=== PATIENT | female | born 1955 | race Hispanic/Latino ===

== ENCOUNTER 2017-05-12 17:31 | Observation (INO) | payer OTHER ==
[2017-05-12] MEDS ORDERED: Oxycodone/Acetaminophen 5/325 mg Tab PO STA (17:50)
--- NOTE | 2017-05-12 18:02 | ED PDOC ---
Lower Extremity Pain/Injury Time Seen by Provider: 05/12/17 17:43 Chief Complaint (Nursing): Lower Extremity Problem/Injury Chief Complaint (Provider): Fall History Per: Patient History/Exam Limitations: no limitations Onset/Duration Of Symptoms: Mins (prior to arrival) Current Symptoms Are (Timing): Still Present Additional Complaint(s): Jenn Lozano is a 61 year old female who presents to the ED for evaluation s/ p fall minutes prior to arrival. States she tripped on a pothole which caused her to fall injuring right ankle, left wrist, and left knee. Patient did not sustain head injury or loss of consciousness. Patient can bear weight on both legs but with pain. Patient denies dizziness or syncope prior to fall. PMD: Hollis Eldridge MD Past Medical History Reviewed: Historical Data, Nursing Documentation, Vital Signs Vital Signs: Last Vital Signs Temp 97.1 F L 05/12/17 17:36 Pulse 82 05/12/17 17:36 Resp 18 05/12/17 17:36 BP 142/78 05/12/17 17:36 Pulse Ox 99 05/12/17 17:36 - Medical History PMH: No Chronic Diseases - Surgical History Surgical History: No Surg Hx - Family History Family History: States: No Known Family Hx - Living Arrangements Living Arrangements: With Family - Social History Current smoker - smoking cessation education provided: No Alcohol: Occasional Drugs: Denies - Allergies Allergies/Adverse Reactions: Allergies Allergy/AdvReac Type Severity Reaction Status Date / Time No Known Allergies Allergy Verified 05/12/17 17:36 Wells Criteria for PE - Wells Criteria for Pulmonary Embolism Clinical Signs and Symptoms of DVT: No P.E is #1 Diagnosis, or Equally Likely: No Heart Rate >100: No Immobilization at least 3 days;Surgery previous 4 weeks: No Previous, objectively diagnosed PE or DVT: No Hemoptysis: No Malignancy w/treatment within 6 months, or palliative: No Total Score: 0 Review of Systems ROS Statement: Except As Marked, All Systems Reviewed And Found Negative Musculoskeletal: Positive for: Other (left wrist injury, left knee injury, right foot injury) Neurological: Positive for: Other (no head injury or LOC) Physical Exam - Reviewed Nursing Documentation Reviewed: Yes Vital Signs Reviewed: Yes - Physical Exam Appears: Positive for: Well, Non-toxic, No Acute Distress Head Exam: Positive for: ATRAUMATIC, NORMAL INSPECTION, NORMOCEPHALIC Skin: Positive for: Normal Color. Negative for: Rash Eye Exam: Positive for: Normal appearance Neck: Positive for: Normal, Painless ROM Extremity: Positive for: Normal ROM (Full ROM left knee w/pain, abrasion noted to left knee), Tenderness (Moderate tenderness to left lateral malleolus), Deformity (Obvious bony deformity to left wrist with palpable radial pulses and normal sensation), Swelling (Moderate swelling to left lateral malleolus) Neurologic/Psych: Positive for: Alert, Oriented - Laboratory Results Result Diagrams: 05/12/17 20:17 05/12/17 20:17 - ECG Interpretation Of ECG: NSR 91 bpm, no acute finding, reviewed by PA and ED attending O2 Sat by Pulse Oximetry: 99 (RA) Pulse Ox Interpretation: Normal - Other Rad CXR X-Ray: Interpreted by Me, Viewed By Me X-Ray Interpretation: no acute finding Left knee x-ray X-Ray: Interpreted by Me, Viewed By Me X-Ray Interpretation: no fx, no dis Right ankle x-ray X-Ray: Interpreted by Me, Viewed By Me X-Ray Interpretation: no fx, no dis Left wrist x-ray X-Ray: Interpreted by Me, Viewed By Me, Read By Radiologist X-Ray Interpretation: see below Medical Decision Making Medical Decision Making: Time: 17:50 Initial Impression: 61 year old female here for evaluation s/p fall Plan: --X-Ray Knee Left 3 Views --X-Ray Ankle Right 3 Views --X-Ray Wrist Left 3 Views --Percocet 5/325 mg PO X-ray left wrist: IMPRESSION: Acute transverse comminuted impacted nondisplaced fracture in the distal radius with moderate pole are. Acute nondisplaced fracture in the styloid process of ulna. Time: 19:00 --Consulted with Dr. Sandra who requested the patient be admitted for displaced radius fracture. Patient is aware of and agrees with admission. --Dr. Singh, family practice resident at bedside for admission. --PMD is Dr. Eldridge, call placed to office and, Dr. Olsen made aware that patient is being admitted. Scribe Attestation: Documented by Jose R Farmer, acting as a scribe for Erica Celeste PA-C Provider Scribe Attestation: All medical record entries made by the Scribe were at my direction and personally dictated by me. I have reviewed the chart and agree that the record accurately reflects my personal performance of the history, physical exam, medical decision making, and the department course for this patient. I have also personally directed, reviewed, and agree with the discharge instructions and disposition. Procedures - Splinting Location: Left wrist Splint: sugar-tong Pre-Proc Neuro Vasc Exam: normal Post-Proc Neuro Vasc Exam: normal Progress: Aircast also applied to right ankle, N/V intact s/p placement. Disposition - Clinical Impression Clinical Impression: Displaced fracture of left radius - Patient ED Disposition Is Patient to be Admitted: Yes - Disposition Disposition Time: 20:38 Condition: FAIR - Pt Status Changed To: Hospital Disposition Of: Inpatient - Admit Certification Admit to Inpatient:: After my assessment, the patient will require hospitalization for at least two midnights. This is because of the severity of symptoms shown, intensity of services needed, and/or the medical risk in this patient being treated as an outpatient. - POA Present On Arrival: None Results - Lab Results Lab Results: 05/12/17 05/12/17 05/12/17 20:17 20:17 20:17 WBC 15.4 H RBC 4.89 Hgb 14.2 Hct 43.5 MCV 88.8 MCH 29.1 MCHC 32.7 L RDW 13.6 Plt Count 525 H MPV 8.4 Neut % (Auto) 87.1 H Lymph % (Auto) 7.0 L [place] % (Auto) 4.8 Eos % (Auto) 0.4 Baso % (Auto) 0.7 Neut # 13.5 H Lymph # 1.1 [place] # 0.7 Eos # 0.1 Baso # 0.1 Neutrophils % (Manual) Pending Lymphocytes % (Manual) Pending Monocytes % (Manual) Pending Platelet Estimate Pending PT 10.9 INR 1.0 APTT 28.3 Sodium 140 Potassium 4.8 Chloride 104 Carbon Dioxide 26 Anion Gap 15 BUN 17 Creatinine 0.7 Est GFR ( Amer) > 60 Est GFR (Non-Af Amer) > 60 Random Glucose 103 Calcium 8.9 Total Bilirubin 0.5 AST 41 H ALT 40 Alkaline Phosphatase 92 Total Protein 7.6 Albumin 4.6 Globulin 3.0 Albumin/Globulin Ratio 1.5
[2017-05-12] MEDS ORDERED: Oxycodone/Acetaminophen 5/325 mg Tab ONE (18:04)
--- NOTE | 2017-05-12 18:40 | RAD ---
PROCEDURE: Left Knee Radiographs. HISTORY: Pain. COMPARISON: None. FINDINGS: BONES: There is no acute displaced fracture or bone destruction. Bone alignment is normal. There is mild periarticular bone demineralization JOINTS: Normal. No osteoarthritis. JOINT EFFUSION: None. OTHER FINDINGS: None. IMPRESSION: No acute fracture or dislocation.
--- NOTE | 2017-05-12 18:40 | RAD ---
PROCEDURE: Right Ankle Radiographs. HISTORY: Trauma COMPARISON: None FINDINGS: BONES: No acute displaced fracture or bone destruction. Bone alignment and mineralization are normal. JOINTS: Normal. No osteoarthritis. Ankle mortise maintained. Talar dome intact SOFT TISSUES: There is moderate lateral soft tissue swelling. OTHER FINDINGS: None. IMPRESSION: No acute displaced fracture or dislocation. Moderate lateral soft tissue swelling.
--- NOTE | 2017-05-12 18:43 | RAD ---
PROCEDURE: Left Wrist Radiographs. HISTORY: trauma COMPARISON: None. FINDINGS: BONES: There is an acute transverse comminuted impacted nondisplaced fracture in the distal radius with moderate volar angulation. There is an acute nondisplaced fracture in the styloid process of ulna. There is diffuse bone demineralization. Bone alignment is normal. JOINTS: The proximal and distal carpal rows are maintained. No dislocation. SOFT TISSUES: There is moderate soft tissue swelling in the distal forearm. OTHER FINDINGS: None. IMPRESSION: Acute transverse comminuted impacted nondisplaced fracture in the distal radius with moderate pole are. Acute nondisplaced fracture in the styloid process of ulna.
--- NOTE | 2017-05-12 19:56 | CP.PCM.HP ---
<Melissa Hernandez - Last Filed: 05/12/17 22:51> History of Present Illness - History of Present Illness History of Present Illness: 61 year old female with no significant PMHx who presents to the ED for evaluation after she fell minutes prior to arrival. Patient states she tripped on a pothole which caused her to twist her right leg and fall injuring right ankle, left wrist, and left knee. Patient did not sustain head injury or loss of consciousness. Patient can bear weight on both legs but with pain. Patient denies dizziness, lightheadedness, CP, blurry vision or other complains prior to the event. Denies Cp, SOB, N/V, abdominal pain. Still having pain in her left wrist, intensity 7/10 at this time, improved after Percocet at ED. Denies tingling, numbness, weakness of upper/lower extremities. PMD:Dr. Eldridge PMHx: No reported Meds: none Shx: none SocialHx: never smoker, very occasional ETOH, denies recreational drugs Present on Admission - Present on Admission Any Indicators Present on Admission: No History of DVT/PE: No History of Uncontrolled Diabetes: No Urinary Catheter: No Decubitus Ulcer Present: No Review of Systems - Review of Systems All systems: reviewed and no additional remarkable complaints except (as per HPI ) Past Patient History - Past Social History Alcohol: Occasional Drugs: Denies - PSYCHIATRIC Hx Substance Use: No - ANESTHESIA Hx Anesthesia: No Meds Allergies/Adverse Reactions: Allergies Allergy/AdvReac Type Severity Reaction Status Date / Time No Known Allergies Allergy Verified 05/12/17 17:36 Physical Exam - Constitutional Appears: Non-toxic, No Acute Distress - Eye Exam Eye Exam: Normal appearance - ENT Exam ENT Exam: Mucous Membranes Moist - Neck Exam Neck exam: Positive for: Full Rom, Normal Inspection. Negative for: Tenderness - Respiratory Exam Respiratory Exam: Clear to Auscultation Bilateral, NORMAL BREATHING PATTERN. absent: Rales, Rhonchi, Wheezes, Respiratory Distress - Cardiovascular Exam Cardiovascular Exam: REGULAR RHYTHM, RRR, +S1, +S2 - GI/Abdominal Exam GI & Abdominal Exam: Normal Bowel Sounds, Soft. absent: Distended, Guarding, Rigid, Tenderness - Extremities Exam Extremities exam: Negative for: calf tenderness Additional comments: Full ROM left knee w/pain, abrasion noted in left and right knees. Moderate swelling of right ankle, no ecchymosis noted, mild tender to palpation. DP pulses present and bilateral. - Back Exam Back exam: NORMAL INSPECTION. absent: CVA tenderness (L), CVA tenderness (R) - Neurological Exam Neurological exam: Alert, Oriented x3 - Psychiatric Exam Psychiatric exam: Normal Affect, Normal Mood - Skin Skin Exam: Dry, Intact, Normal Color Results - Vital Signs Recent Vital Signs: Last Vital Signs Temp 97.1 F L 05/12/17 17:36 Pulse 82 05/12/17 17:36 Resp 18 05/12/17 17:36 BP 142/78 05/12/17 17:36 Pulse Ox 99 05/12/17 19:56 - Labs Result Diagrams: 05/12/17 20:17 05/12/17 20:17 Assessment & Plan - Assessment and Plan (Free Text) Assessment: 61 y/o F with no PMHx, s/p fall being admitted with left displaced radius fracture for possible surgical intervention. Plan: Left displaced radius fracture -MedSurg -status post-fall -CBC: H/H: 14.2/43.5, CMP: unremarkable, coag panel wnl -type and screen -pain control -f/u repeat CBC -left arm immobilized -CXR showed no gross evidence of acute disease, awaiting for official report -Left wrist x ray showed acute transverse comminuted impacted nondisplaced fracture in the distal radius. Acute nondisplaced fracture in the styloid process of ulna. -Right ankle x ray showed no acute displaced fracture or dislocation. Moderate lateral soft tissue swelling. -Left knee x ray showed no acute fracture or dislocation -F/u upper extremity CT scan -Ortho consulted by ED, Dr. Sandra on board, as per ED, Ortho recommended surgical intervention. Patient will be NPO after midnight for OR tomorrow by Dr. Sandra. Ankle sprain -Right ankle x ray showed no acute displaced fracture or dislocation. Moderate lateral soft tissue swelling. -c/w pain control DVT prophylaxis SCDs for now Will hold Lovenox for now for possible OR tomorrow morning by Ortho. - Date & Time Date: 05/12/17 Time: 20:00 <Hollis Eldridge - Last Filed: 05/13/17 06:53> Results - Vital Signs Recent Vital Signs: Last Vital Signs Temp 98.2 F 05/13/17 00:29 Pulse 91 H 05/13/17 00:29 Resp 20 05/13/17 00:29 BP 125/70 05/13/17 00:29 Pulse Ox 96 05/13/17 00:29 - Labs Result Diagrams: 05/12/17 20:17 05/12/17 20:17 Labs: Laboratory Results - last 24 hr 05/12/17 05/12/17 05/12/17 20:17 20:17 20:17 WBC 15.4 H RBC 4.89 Hgb 14.2 Hct 43.5 MCV 88.8 MCH 29.1 MCHC 32.7 L RDW 13.6 Plt Count 525 H MPV 8.4 Neut % (Auto) 87.1 H Lymph % (Auto) 7.0 L [place] % (Auto) 4.8 Eos % (Auto) 0.4 Baso % (Auto) 0.7 Neut # 13.5 H Lymph # 1.1 [place] # 0.7 Eos # 0.1 Baso # 0.1 Neutrophils % (Manual) 81 H Band Neutrophils % 4 H Lymphocytes % (Manual) 8 L Monocytes % (Manual) 6 Basophils % (Manual) 1 Toxic Granulation Present Platelet Estimate Slightly increased H Large Platelets Present Hypochromasia (manual) Slight PT 10.9 INR 1.0 APTT 28.3 Sodium 140 Potassium 4.8 Chloride 104 Carbon Dioxide 26 Anion Gap 15 BUN 17 Creatinine 0.7 Est GFR ( Amer) > 60 Est GFR (Non-Af Amer) > 60 Random Glucose 103 Calcium 8.9 Total Bilirubin 0.5 AST 41 H ALT 40 Alkaline Phosphatase 92 Total Protein 7.6 Albumin 4.6 Globulin 3.0 Albumin/Globulin Ratio 1.5 Blood Type Antibody Screen BBK History Checked 05/12/17 21:03 WBC RBC Hgb Hct MCV MCH MCHC RDW Plt Count MPV Neut % (Auto) Lymph % (Auto) [place] % (Auto) Eos % (Auto) Baso % (Auto) Neut # Lymph # [place] # Eos # Baso # Neutrophils % (Manual) Band Neutrophils % Lymphocytes % (Manual) Monocytes % (Manual) Basophils % (Manual) Toxic Granulation Platelet Estimate Large Platelets Hypochromasia (manual) PT INR APTT Sodium Potassium Chloride Carbon Dioxide Anion Gap BUN Creatinine Est GFR ( Amer) Est GFR (Non-Af Amer) Random Glucose Calcium Total Bilirubin AST ALT Alkaline Phosphatase Total Protein Albumin Globulin Albumin/Globulin Ratio Blood Type AB POSITIVE Antibody Screen Negative BBK History Checked No verified bt Attending/Attestation - Attestation I have personally seen and examined this patient.: Yes I have fully participated in the care of the patient.: Yes I have reviewed all pertinent clinical information: Yes
[2017-05-12 20:32] LABS: BILIRUBIN,TOTAL 0.5 mg/dl (0.2-1.3); CALCIUM 8.9 mg/dL (8.4-10.2); CARBON DIOXIDE 26 mmol/L (22-30); CHLORIDE 104 mmol/L (98-107); GFR AFRICAN-AMERICAN > 60; GLUCOSE,RANDOM 103 mg/dL (65-105); SODIUM 140 mmol/l (132-148)
[2017-05-12 20:34] LABS: ALB/GLOB RATIO 1.5 (1.0-2.1); ALKALINE PHOSPHATASE 92 U/L (38-126); ALT/SGPT 40 U/L (9-52); AST/SGOT 41 U/L (14-36); BLOOD UREA NITROGEN 17 mg/dl (7-17); POTASSIUM 4.8 MMOL/L (3.6-5.0); TOTAL PROTEIN 7.6 G/DL (6.3-8.2)
[2017-05-12 20:46] LABS: BASO # 0.1 K/uL (0.0-0.2); BASO % 0.7 % (0.0-2.0); EOS # 0.1 K/uL (0.0-0.7); EOS % 0.4 % (0.0-4.0); HEMATOCRIT 43.5 % (34.0-47.0); LYMPH # 1.1 K/uL (1.0-4.3); MEAN CELL VOLUME 88.8 fl (81.0-99.0); MEAN CORPUSCULAR HEMOGLOBIN 29.1 pg (27.0-31.0); MEAN CORPUSCULAR HGB CONC 32.7 g/dL (33.0-37.0); MEAN PLATELET VOLUME 8.4 fl (7.2-11.7); MONO # 0.7 K/uL (0.0-0.8); MONO % 4.8 % (0.0-10.0); NEUT # 13.5 K/uL (1.8-7.0); NEUT % 87.1 % (50.0-75.0); NRBC % 0.1 % (0.0-0.0); PLATELET COUNT 525 K/uL (130-400); RED CELL DISTRIBUTION WIDTH 13.6 % (11.5-14.5); WHITE BLOOD COUNT 15.4 K/uL (4.8-10.8)
[2017-05-12 20:52] LABS: PARTIAL THROMBOPLASTIN TIME 28.3 Seconds (25.6-37.1)
[2017-05-12] MEDS ORDERED: Oxycodone/Acetaminophen 5/325 mg Tab PO ONE (20:52)
[2017-05-12 22:17] LABS: BASOPHIL 1 % (0-2); NEUTROPHIL 81 % (42-75); TOTAL CELLS COUNTED 100
[2017-05-12 22:18] LABS: LARGE PLATELETS PRESENT
[2017-05-13] MEDS: Bacitracin OINT 15GM TOP SCH ×3 (00:22→16:33)
[2017-05-13] MEDS ORDERED: Sodium Chloride 0.9% 1,000 ML IV SCH (07:00)
[2017-05-13] MEDS: Sodium Chloride 0.9% 1,000 ML IV SCH ×2 (07:20→15:00)
[2017-05-13 07:23] LABS: BASO % 0.3 % (0.0-2.0); EOS % 0.2 % (0.0-4.0); HEMATOCRIT 40.7 % (34.0-47.0); LYMPH % 7.7 % (20.0-40.0); MEAN CELL VOLUME 88.6 fl (81.0-99.0); MEAN CORPUSCULAR HGB CONC 32.8 g/dL (33.0-37.0); MEAN PLATELET VOLUME 8.3 fl (7.2-11.7); MONO % 7.7 % (0.0-10.0); NEUT # 10.8 K/uL (1.8-7.0); NEUT % 84.1 % (50.0-75.0); RED CELL DISTRIBUTION WIDTH 13.7 % (11.5-14.5); WHITE BLOOD COUNT 12.9 K/uL (4.8-10.8)
[2017-05-13] MEDS ORDERED: Ropivacaine 0.5% 30ML IV ONE (07:26)
[2017-05-13] MEDS ORDERED: Propofol 10 mg/ml Inj (20 ML) ONE (07:31)
[2017-05-13] MEDS ORDERED: Rocuronium 10 mg/ml (5 ml) ONE (07:32)
[2017-05-13] MEDS ORDERED: Phenylephrine 10 mg/ml Inj ONE (07:33)
[2017-05-13] MEDS ORDERED: Succinylcholine 200 mg/10 ml Inj IV ONE (07:33)
[2017-05-13] MEDS ORDERED: Lidocaine 4% (Laryng-O-Jet) Kit MM ONE (07:36)
[2017-05-13] MEDS ORDERED: ceFAZolin IV 1 gm in Dextrose 1 GM/50 ML BAG IVPB ONE (08:11)
[2017-05-13] MEDS ORDERED: Bacitracin Ointment 30 GM TUBE ONE (08:11)
[2017-05-13] MEDS ORDERED: Lactated Ringer's 1,000 ML IV ONE (09:30)
[2017-05-13] MEDS ORDERED: Midazolam 2 MG/2 ML VIAL ONE (09:34)
[2017-05-13] MEDS ORDERED: Lidocaine 2% Jelly (5 ml) TOP ONE (09:35)
--- NOTE | 2017-05-13 09:50 | CP.PCM.PN ---
<MichaelGuille - Last Filed: 05/13/17 09:54> Subjective - Date & Time of Evaluation Date of Evaluation: 05/13/17 Time of Evaluation: 07:00 - Subjective Subjective: 61 y/o F seen at bedside in not acute distress, stable. Patient c/o mild pain in the fx area. Denies vomiting, fever, numbness, changes in urination or stools , SOB or palpitations. Patient scheduled for OR for surgical repair this morning. Objective - Vital Signs/Intake and Output Vital Signs (last 24 hours): Temp Pulse Resp BP Pulse Ox 98 F 91 H 20 123/73 94 L 05/13/17 08:01 05/13/17 08:01 05/13/17 08:01 05/13/17 08:01 05/13/17 08:01 - Medications Medications: Current Medications Bacitracin (Bacitracin Oint) 1 applic TOP BID [facility] Last Admin: 05/13/17 00:22 Dose: 1 applic Hydromorphone HCl (Dilaudid) 0.25 mg IVP Q6 PRN PRN Reason: Pain, severe (8-10) Last Admin: 05/12/17 23:48 Dose: 0.25 mg Sodium Chloride (Sodium Chloride 0.9%) 1,000 mls @ 125 mls/hr IV .Q8H [facility] Stop: 05/14/17 06:51 Ketorolac Tromethamine (Toradol) 15 mg IVP Q6 PRN PRN Reason: Pain, moderate (4-7) Last Admin: 05/13/17 06:09 Dose: 15 mg - Labs Labs: 05/13/17 06:10 05/12/17 20:17 PT 10.9 Seconds (9.8-13.1) 05/12/17 20:17 INR 1.0 (0.9-1.2) 05/12/17 20: APTT 28.3 Seconds (25.6-37.1) 05/12/17 20:17 - Constitutional Appears: Non-toxic, No Acute Distress - Eye Exam Eye Exam: EOMI, PERRL - ENT Exam ENT Exam: Mucous Membranes Moist - Respiratory Exam Respiratory Exam: Clear to Ausculation Bilateral, NORMAL BREATHING PATTERN. absent: Rales, Wheezes - Cardiovascular Exam Cardiovascular Exam: REGULAR RHYTHM, +S1, +S2. absent: Murmur - GI/Abdominal Exam GI & Abdominal Exam: Soft, Normal Bowel Sounds. absent: Tenderness - Extremities Exam Extremities Exam: Tenderness (L/forearm. Dressing/cast clean and dry.). absent : Calf Tenderness - Neurological Exam Neurological Exam: Alert, Awake, Oriented x3 Additional comments: NO signs of neurovascular compromise distal to fx. - Psychiatric Exam Psychiatric exam: Normal Affect, Normal Mood - Skin Skin Exam: Normal Color, Warm Assessment and Plan - Assessment and Plan (Free Text) Assessment: 61 y/o F with no PMHx, s/p fall being admitted with left displaced radius fracture for possible surgical intervention. Left displaced distal radial fracture -Hemodinamically stable -NPO -For Surgical repair this morning. Ortho consulted: Dr Sandra -C/w pain control Ankle sprain -Right ankle x ray showed no acute displaced fracture or dislocation. Moderate lateral soft tissue swelling. -c/w pain control DVT prophylaxis SCDs for now Will start Lovenox AM after Sx. <Hollis Eldridge - Last Filed: 05/14/17 06:47> Objective - Vital Signs/Intake and Output Vital Signs (last 24 hours): Temp Pulse Resp BP Pulse Ox 97.7 F 75 18 125/78 94 L 05/13/17 15:52 05/13/17 15:52 05/13/17 15:52 05/13/17 15:52 05/13/17 15:52 Intake and Output: 05/13/17 05/14/17 18:59 06:59 Intake Total 1200 Balance 1200 - Labs Labs: 05/13/17 06:10 05/12/17 20:17 PT 10.9 Seconds (9.8-13.1) 05/12/17 20:17 INR 1.0 (0.9-1.2) 05/12/17 20:17 APTT 28.3 Seconds (25.6-37.1) 05/12/17 20:17 Attending/Attestation - Attestation I have personally seen and examined this patient.: Yes I have fully participated in the care of the patient.: Yes I have reviewed all pertinent clinical information, including history, physical exam and plan: Yes
[2017-05-13] MEDS ORDERED: Desflurane Inhalation Anesthetic Liq (240 ml) ONE (09:54)
[2017-05-13] MEDS ORDERED: Dexamethasone 4 mg/1 ml ONE (09:59)
--- NOTE | 2017-05-13 10:21 | RAD ---
PROCEDURE: CHEST RADIOGRAPH, 1 VIEW HISTORY: admit COMPARISON: None available. FINDINGS: LUNGS: Borderline patchy density interrupting the left heart border inferolaterally appears may represent trace airspace disease at the lingula. Remaining lung yang are clear. PLEURA: No pneumothorax or pleural fluid seen. CARDIOVASCULAR: Normal. OSSEOUS STRUCTURES: No significant abnormalities. VISUALIZED UPPER ABDOMEN: Normal. OTHER FINDINGS: None. IMPRESSION: Borderline lingular infiltrate. No additional infiltrate appreciated bilaterally. No pleural effusion or pneumothorax bilaterally.
[2017-05-13] MEDS ORDERED: Neostigmine Methylsulfate 2 MG/2 ML ML IV ONE (11:34)
[2017-05-13] MEDS ORDERED: Lactated Ringer's 500 ML IV ONE (11:45)
--- NOTE | 2017-05-13 12:37 | CT ---
PROCEDURE: CT left wrist HISTORY: assess wrist fracture COMPARISON: Not available TECHNIQUE: Computed tomography of the left wrist was performed without intravenous contrast administration. 1.25 mm contiguous axial sections were acquired through the wrist. Sagittal and coronal images were reformatted. FINDINGS: There is a comminuted displaced distal radial fracture. There is no definite intra-articular extension. There is dorsal displacement of the distal fragment at the transverse portion of the fracture. There is a nondisplaced ulnar styloid process fracture. The radiocarpal articulation appears intact. There is questionable nondisplaced triquetrum fracture. Evaluation is limited due to streak artifact limiting fine detail. There is no other fracture appreciated. Please note that the transverse portion of the distal radial fracture extends to the distal radial ulnar articulation. There are no intra-articular osseous fragments appreciated. Normal carpal alignment is maintained. The scapholunate interval is normal. IMPRESSION: Comminuted displaced distal radial fracture. Nondisplaced ulnar styloid process fracture. Questionable nondisplaced triquetrum fracture. Technically limited examination.
[2017-05-13] MEDS ORDERED: HYDROmorphone 0.5 mg/0.5 ml ISec IVP PRN (12:40)
[2017-05-13] MEDS ORDERED: Lactated Ringer's 1,000 ML IV SCH (12:45)
--- NOTE | 2017-05-13 12:51 | PCM.ANESB4 ---
Infraclavicular Block - Femoral Nerve Block Date of Procedure: 05/13/17 Anesthesiologist: Malachi Pre-Procedure Diagnosis: Left distal radius fracture Post-Procedure Diagnosis: Same Procedure Performed: Brachial Plexus at the Infraclavicular area Left - Procedure Infraclavicular Block: The procedure was explained to the patient that it is for the post-operative pain management. Consent was obtained after a thorough discussion with the patient regarding the benefits and possible complications of local anesthetic block of the brachial plexus at the infraclavicular area. After a negative neurological exam which revealed no focal deficits and intact sensation in the left operative hand in the PACU by orthopaedics, the patient was prepped for the block. Standard monitors were applied and a time-out was held with the PACU nurse to confirm the correct surgery and the appropriate block. After applying oxygen by face mask, the patient's head was gently rotated away from the operative __left shoulder and the area medial to the coracoid process and inferior to the clavicle was carefully palpated. The ultrasound transducer was then applied to the skin in the transverse plane and the brachial plexus was visualized surrounding the axillary artery and deep to the pectoralis major and minor muscles. After thorough identification, this area was prepped with Chloraprep and 1 % Lidocaine was injected subcutaneously for topical anesthesia. At this point, a #21 gauge Stimuplex 4-inch needle was inserted cephalad to the ultrasound transducer and inferior to the clavicle in-plane towards the posterior aspect of the axillary artery. Needle advancement was performed carefully under ultrasound visualization. Nerve stimulator was used and twitch of the affected extremity including fingers, hand, wrist and elbow was obtained at current of __0.4___MA. After repeated negative aspiration, ___2__cc of __0.5_ __% ____ropivicaine was injected and this was followed with ___ 28___ cc of ___0.5____ % ropivicaine . Under ultrasound guidance the local anesthetics were observed surrounding the cords of the brachial plexus. The needle was removed intact and sterile dressing was applied. The patient had stable vital signs, was conscious and in no apparent distress. The patient tolerated the infraclavicular block of the brachial plexus well and reported significant reduction in pain score 10 minutes after the block.
[2017-05-13 12:57] VITALS: RESP 18
[2017-05-13 15:08] VITALS: PULSE 75
--- NOTE | 2017-05-13 15:14 | RAD ---
PROCEDURE: Fluoroscopy over 1 hour HISTORY: LEFT WRIST COMPARISON: None TECHNIQUE: Standard protocol for this study/examination. FINDINGS: Submitted images from the current procedure: Greater than 10. IMPRESSION: Total fluoroscopic time (continuous mode) utilized during the procedure: 11.2 seconds.
[2017-05-13 15:39] VITALS: BP 125/78; TEMP 97.7
[2017-05-13 15:53] VITALS: O2SAT 94
--- NOTE | 2017-05-13 16:41 | CP.PCM.PN ---
<Cisco Platt - Last Filed: 05/13/17 18:02> Subjective - Date & Time of Evaluation Date of Evaluation: 05/13/17 Time of Evaluation: 16:32 - Subjective Subjective: Family Medicine Initial Post-Op note- Hollis Eldridge Jeramie 61 y/o female seen at bedside s/p left distal radius fracture ORIF by Dr. Coleman with daughter and grand-daughter at bedside. Patient seen at bedside laying comfortably in bed, AAOx3, in NAD. Patient reports that she is doing well. She reports mild pain to the left wrist secondary to well controlled by medication and s/p left intraclavicular block of brachial plexus. Patient denies numbness, reports tingling to the distal fingers. Patient denies n/v/sob/ cp/chills/f. Also, patient complains of right ankle pain. Patient is seen wearing aircast. Patient reports that she is unable to bear weight to the right ankle. Objective - Vital Signs/Intake and Output Vital Signs (last 24 hours): Temp Pulse Resp BP Pulse Ox 97.7 F 75 18 125/78 94 L 05/13/17 15:52 05/13/17 15:52 05/13/17 15:52 05/13/17 15:52 05/13/17 15:52 Intake and Output: 05/13/17 05/13/17 06:59 18:59 Intake Total 1200 Balance 1200 - Medications Medications: Current Medications Bacitracin (Bacitracin Oint) 1 applic TOP BID [facility] Last Admin: 05/13/17 00:22 Dose: 1 applic Hydromorphone HCl (Dilaudid) 0.25 mg IVP Q6 PRN PRN Reason: Pain, severe (8-10) Last Admin: 05/12/17 23:48 Dose: 0.25 mg Sodium Chloride (Sodium Chloride 0.9%) 1,000 mls @ 125 mls/hr IV .Q8H [facility] Stop: 05/14/17 06:51 Lactated Ringer's (Lactated Ringer's) 1,000 mls @ 100 mls/hr IV .Q10H [facility] Ketorolac Tromethamine (Toradol) 15 mg IVP Q6 PRN PRN Reason: Pain, moderate (4-7) Last Admin: 05/13/17 06:09 Dose: 15 mg - Labs Labs: 05/13/17 06:10 05/12/17 20:17 PT 10.9 Seconds (9.8-13.1) 05/12/17 20:17 INR 1.0 (0.9-1.2) 05/12/17 20:17 APTT 28.3 Seconds (25.6-37.1) 05/12/17 20:17 - Constitutional Appears: Well, Non-toxic, No Acute Distress - Head Exam Head Exam: ATRAUMATIC, NORMAL INSPECTION - Eye Exam Eye Exam: Normal appearance - ENT Exam ENT Exam: Mucous Membranes Moist - Neck Exam Neck Exam: Full ROM - Respiratory Exam Respiratory Exam: absent: Chest Wall Tenderness - Cardiovascular Exam Cardiovascular Exam: REGULAR RHYTHM, RRR, +S1, +S2 - GI/Abdominal Exam GI & Abdominal Exam: Soft, Normal Bowel Sounds. absent: Tenderness - Extremities Exam Extremities Exam: absent: Calf Tenderness Additional comments: Dressing is clean, dry, intact to the left arm and wrist Temperature gradient WNL, no increase warmth noted, Capillary refill time < 3 seconds fingers Patient able to wiggle fingers, MM is 5/5 bilaterally Reports numbness most secondary to anesthesia administration R LE examination: Vasc: DP and PT 2/4 left, temperature gradient WNL, nonpitting localized edema noted to the right ankle Ortho: severe pain with palpation the lateral malleolus and overlying soft tissue including ATFL, unable to perform MM secondary to guarding Neuro: gross and protective sensation intact bilaterally Derm: no open lesions noted, no erythema, no ecchymosis noted to the entire right ankle, no clinical signs of infection - Neurological Exam Neurological Exam: Alert, Awake, Oriented x3 - Psychiatric Exam Psychiatric exam: Normal Affect, Normal Mood - Skin Skin Exam: Intact Assessment and Plan - Assessment and Plan (Free Text) Assessment: 61 y/o female seen at bedside s/p left distal radius fracture ORIF by Dr. Coleman and painful right ankle sprain. Plan: Left displaced distal radial fracture -s/p ORIF of distal radial fracture by Dr. Sandra -c/w current pain management -will advance to regular diet Ankle sprain -Right ankle x ray showed no acute displaced fracture or dislocation. Moderate lateral soft tissue swelling. -c/w aircast -c/w pain control -instructed on RICE protocol -physical therapy consulted- evaluate and treat -patient is high fall risk given inability and difficulties to bear weight with right ankle secondary to pain -recommendations appreciated DVT prophylaxis -Will start Lovenox AM after Sx. <Hollis Eldridge - Last Filed: 05/14/17 06:48> Objective - Vital Signs/Intake and Output Vital Signs (last 24 hours): Temp Pulse Resp BP Pulse Ox 97.7 F 75 18 125/78 94 L 05/13/17 15:52 05/13/17 15:52 05/13/17 15:52 05/13/17 15:52 05/13/17 15:52 Intake and Output: 05/13/17 05/14/17 18:59 06:59 Intake Total 1200 Balance 1200 - Labs Labs: 05/13/17 06:10 05/12/17 20:17 PT 10.9 Seconds (9.8-13.1) 05/12/17 20:17 INR 1.0 (0.9-1.2) 05/12/17 20:17 APTT 28.3 Seconds (25.6-37.1) 05/12/17 20:17 Attending/Attestation - Attestation I have personally seen and examined this patient.: Yes I have fully participated in the care of the patient.: Yes I have reviewed all pertinent clinical information, including history, physical exam and plan: Yes
--- NOTE | 2017-05-13 17:09 | RAD ---
PROCEDURE: Left Wrist Radiographs. HISTORY: s/p left ORIF distal radius FX, carpal tunnel COMPARISON: Left wrist radiographs 05/12/2017. FINDINGS: BONES: Patient's as imaged status post open reduction and internal fixation of distal left radial fracture by a solitary volar compression plate transfixed using multiple compression screws. Fracture appears adequately reduced and postoperative changes seen the local soft tissues with skin sridhar noted at the volar wrist skin. Partial cast stabilizes the wrist. JOINTS: Normal. No dislocation. SOFT TISSUES: As above. OTHER FINDINGS: None. IMPRESSION: Status post open reduction internal fixation distal left Colles fracture as per above.
--- NOTE | 2017-05-14 16:19 | OP ---
PROCEDURE DATE: 05/12/2017 PREOPERATIVE DIAGNOSIS: Displaced angulated distal radius fracture with evidence of compression of the median nerve. POSTOPERATIVE DIAGNOSES: 1. Displaced angulated distal radius fracture. 2. Post-traumatic carpal tunnel syndrome. 3. Flexor tenosynovitis. PROCEDURES: 1. Open reduction and internal fixation of displaced angulated distal radius fracture. 2. Median neuroplasty. 3. Partial median neurolysis. 4. Release of transverse carpal ligament. 5. Capsulotomy and repair. 6. Application of volar splint. 7. Positioning of fluoroscope and interpretation of video images. SURGEON: Sandor Sandra MD. FEEDER LOADER: Haven Soria. It should be noted that the nursing registered nurse first assistant was essential to the completion of this operation. TYPE OF ANESTHESIA: General anesthesia and regional anesthesia. ANESTHESIA ADMINISTERED BY: Tom Ly MD. COMPLICATIONS: None. DRAINS: None. OPERATIVE INDICATION: Jenn Lozano is a 61-year-old woman who presents after a fall on an outstretched distal radius. 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 The nature of the fracture was discussed at length with the patient again who is a very intelligent sql engineer. Pros, cons, risks, and benefits of alternative procedures were discussed. The possibility of mechanical failure, infection, thromboembolic disease, secondary or tertiary surgery was discussed. The concept of later hardware removal was discussed. The patient wishes the surgery to be accomplished in terms of open reduction and internal fixation as the most rapid way to regain range of motion. OPERATIVE PROCEDURE: After having obtained informed consent; after the satisfactory induction of general and regional anesthesia by Dr. Ly; after having identified side, site and procedure, and a critical pause/time-out, the patient identified as Jenn Lozano in the supine position with all bony prominences well padded. The left upper extremity was prepped and free draped in usual fashion for upper extremity surgery. The tourniquet had been applied, but was not yet inflated. After exsanguinating the limb using a 6-inch Esmarch bandage, the tourniquet which had been applied was inflated to 350 mmHg. An incision was described in the median palmar crease, deviating radially at the proximal crease and deviating back ulnarly. The interval between the flexor carpi radialis tendon and the palmaris longus tendon is developed. The skin incision was carried down through the skin and subcutaneous tissue. Hemostasis controlled with electrocautery in a very low thermal energy. The entire extent of the transverse carpal ligament was identified. The palmaris longus tendon is reflected. The stay sutures were placed to avoid trauma to the wrist with retractors. The entire extent of the transverse carpal ligament was identified and was released. There was evidence of hematoma. There was evidence of compression of the median nerve. Great care was taken to avoid injury to the palmar cutaneous branch of the median nerve and the motor branch of the median nerve. The dissection was carried out. A partial median neurolysis was accomplished under 2.0 eyeglass magnification. There was found to be exuberant flexor tenosynovitis. A partial flexor tenosynovectomy was accomplished. The fracture now at this point was identified. The pronator quadratus was carefully divided. Great care was taken to avoid injury to the anterior interosseous branch of the median nerve. Capsule was opened. The arthrotomy of the wrist was accomplished. The soft tissues were elevated. The fracture was reduced with exacerbation of deformity and reversal of deformity with a three-hole distal radial locking plate, DePuy [place] was applied, and each sequential drill hole was drilled, sounded and the appropriate size screw was placed. Verification of position was offered on AP and lateral image intensification views. The position was found to be excellent on AP and lateral image intensification views. The wound was thoroughly irrigated. The wrist capsule was repaired using interrupted sutures. Again, a partial median neurolysis and partial flexor tenosynovectomy had been accomplished. The tourniquet was deflated. Hemostasis controlled. Closures in layers with interrupted 2-0 Vicryl, 3-0 Vicryl, sridhar, and sutures for skin. Dario Vogt compression dressing and volar splint were applied. Sandor Sandra MD
--- NOTE | 2017-05-14 17:48 | CARD ---
APPROVED REPORT EKG Measurement Heart [id number] <Conclusion> Normal sinus rhythm Normal ECG
--- NOTE | 2017-05-14 18:06 | CARD ---
APPROVED REPORT EKG Measurement Heart [id number] <Conclusion> Normal sinus rhythm Cannot rule out Anterior infarct, age undetermined Abnormal ECG
== END 2017-05-13 18:55 | disposition left against medical advice (07) ==
LOC: H.ER 17:31 → H.EROBSV 19:31 → H.MEDSURG1 21:30
PROVIDERS: ADMIT Family Medicine; ATTEND Family Medicine
DX: S52.592A Other fractures of lower end of left radius, initial encounter for closed fracture (principal); G56.02 Carpal tunnel syndrome, left upper limb; M65.842 Other synovitis and tenosynovitis, left hand; W01.0XXA Fall on same level from slipping, tripping and stumbling without subsequent striking against object, initial encounter; Y92.480 Sidewalk as the place of occurrence of the external cause
CPT/HCPCS: 25607; 36415; 64415; 64721; 71010; 73110; 73200; 73562; 73610; 76001; 80053; 85025; 85610; 85730; 86850; 86900; 88305; 93005; 99283; G0378; J0330; J0690; J1100; J1170; J1885; J2001; J2250; J2370; J2405; J2704; J2710; J2765; J3010; J7120